=== PATIENT | male | born 1980 | race Caucasian/White ===

== ENCOUNTER 2017-05-10 22:21 | Emergency (ER) | payer BC ==
[~2017-05-10] VITALS: Ht 172.7 cm; Wt 99.8 kg
[~2017-05-10 22:21] MED LIST: HYDACE5 PO; IBUP400 PO; IBUP800 PO; META800 PO; NAPR500 PO; Norco 10-325 T1 EACH PO; OXYACE5T PO; PENVK500
[2017-05-10] MEDS ORDERED: Augmentin 875-1 EACH PO (23:11)
== END 2017-05-10 23:15 | disposition home or self-care (01) ==
LOC: ER 22:21
DX: S51.852A Open bite of left forearm, initial encounter (principal); Z79.2 Long term (current) use of antibiotics; F17.200 Nicotine dependence, unspecified, uncomplicated; W54.0XXA Bitten by dog, initial encounter
CPT/HCPCS: 90471; 90714; 99283